=== PATIENT | male | born 2000 | race Caucasian/White ===

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

== ENCOUNTER 2023-12-29 11:07 | Emergency (ER) | payer OTHER, SELFPAY ==
[2023-12-29 11:08] VITALS: BP 146/99; PULSE 90; RESP 16; TEMP 36.7; O2SAT 100; BMI 26.0
--- NOTE | 2023-12-29 11:09 | RAD_ITS ---
INDICATION: distal tip of 4th toe redness, dropped a 12 pack of pop on it EXAMINATION/TECHNIQUE: X-RAY - RIGHT FOOT XR Toes Min 2 Views 4 VIEWS COMPARISON: No relevant prior comparison study available FINDINGS: SOFT TISSUES: No soft tissue swelling or gas. No radiopaque foreign body. BONES/JOINTS: No acute fracture or subluxation.. Normal alignment. Preservation of the joint space.. No sclerotic or destructive changes observed. RAD/Toe(s) Min 2 Views IMPRESSION: No evidence of acute fracture Electronically Signed: Oscar Wu MD at 12:11 EDT ,
--- NOTE | 2023-12-29 12:25 | EX.ED.DYSGE1 ---
HPI <KARINA Denton - Last Filed: 12/29/23 12:39> History of Present Illness Chief Complaint: Lower Extremity Injury Narrative Narrative: Patient is a 23-year-old male with no significant medical history presents to the emergency department with right fourth toe injury. Patient states last evening around 12:30 AM, he was going to bed when he picked up a 12 pack of Pepsi bottles and 1 fell and hit his toe. He states the toes worse with pain and he is here for evaluation thinks he broke his toe. PFSH <KARINA Denton - Last Filed: 12/29/23 12:39> PFSH Home Medications ?Medication ?Instructions ?Recorded ?Last Taken ?Type uujyre-DF-DU-acetaminophen-GG 25 20 ml PO Q6H PRN PRN Congestion 06/15/19 06/15/19 History mg-10 mg-650 mg/20mL(nt) oral liquids Allergy/AdvReac Type Severity Reaction Status Date / Time No Known Allergies Allergy Verified 12/29/23 11:09 Social History Smoking Status: Never smoker ROS <KARINA Denton - Last Filed: 12/29/23 12:39> ROS ED ROS Narrative Constitutional: Negative for fever, chills, weight loss, weakness Eyes: Negative for vision loss, vision change, double vision ENT: Negative for any sore throat, ear pain, congestion Cardiovascular: Negative for any chest pain, tightness, palpitations Respiratory: Negative for any cough, sputum production, hemoptysis, dyspnea, dyspnea on exertion, orthopnea Gastrointestinal: Negative for any abdominal pain, nausea, vomiting, diarrhea, constipation, blood in stool, blood in vomit : Negative for any urinary frequency, dysuria, retention, blood in urine Muscle skeletal: Negative for any neck pain, back pain. Positive for right fourth toe pain Neurological: Negative for any headache, syncope, dizziness Skin: Negative for any rashes, itching, abrasions, lacerations Psychiatric: Negative for any depression, anxiety, stress, suicidal ideation, homicidal ideation Hematologic: Negative for any excessive bruising, easy bleeding EXAM <KARINA Denton - Last Filed: 12/29/23 12:39> Physical Exam Narrative Exam Narrative: Vital signs reviewed. HEET: Head normocephalic atraumatic, TMs clear bilaterally. Posterior pharynx is clear, moist mucous membranes. Nares clear bilaterally. Neck: Supple with no lymphadenopathy or tenderness. No signs of meningismus. Cardiac: Regular rate and rhythm no murmurs gallops or rubs, equal peripheral pulses bilaterally. Respiratory: Lungs clear to auscultation bilaterally. No chest tenderness. Abdomen: Soft, nontender, nondistended. No abdominal bruit or pulsatile masses. No hepatosplenomegaly Extremities: No peripheral edema, no signs of gross trauma or deformity. Active full range of motion of all extremities. Full range of motion, negative for any ecchymosis or edema Neuro: Cranial nerves II through XII intact, no focal neurological deficits. Skin: Clean dry and intact with no rash, purpura, petechiae, vesicles or pustules. Backs/flank: No CVA tenderness, no midline spinal tenderness, no deformity. Psych: Normal mood and affect. No SI, HI or acute psychosis. Const Vital Signs: 12/29/23 11:08 Temperature 98.1 F Temperature Source Temporal Pulse Rate 90 Respiratory Rate 16 Blood Pressure 146/99 H Blood Pressure Mean 114 Pulse Ox 100 Oxygen Delivery Method Room Air <Dr. Chintan Lal DO - Last Filed: 12/29/23 15:34> Physical Exam Const Vital Signs: 12/29/23 11:08 Temperature 98.1 F Temperature Source Temporal Pulse Rate 90 Respiratory Rate 16 Blood Pressure 146/99 H Blood Pressure Mean 114 Pulse Ox 100 Oxygen Delivery Method Room Air MDM <KARINA Denton - Last Filed: 12/29/23 12:39> MDM Radiography Diagnostic Testing: Clinical Impression(s) from Imaging Studies Toe X-Ray 12/29/23 11:09 IMPRESSION: No evidence of acute fracture Electronically Signed: Oscar Wu MD at 12:11 EDT , Treatment and Re-Evaluation :: Differential diagnosis includes however is not limited to: Toe fracture, toe contusion, toe sprain Patient appears generally well, patient appears nontoxic, vital signs are stable. Patient presents to the emergency department with right fourth toe pain. Patient's x-rays of the toes on the right foot shows no evidence of acute fracture. Patient placed in a postop shoe. Structured to ice and elevate. Patient continue to use ibuprofen and Tylenol. All questions answered, patient stable for discharge. <Dr. Chintan Lal, DO - Last Filed: 12/29/23 15:34> [facility] Narrative Medical decision making narrative: Differential diagnosis includes however is not limited to: Toe fracture, toe contusion, toe sprain Patient appears generally well, patient appears nontoxic, vital signs are stable. Patient presents to the emergency department with right fourth toe pain. Patient's x-rays of the toes on the right foot shows no evidence of acute fracture. Patient placed in a postop shoe. Structured to ice and elevate. Patient continue to use ibuprofen and Tylenol. All questions answered, patient stable for discharge. Patient presenting with toe pain after he dropped a 12 pack of Pepsi on his toe. No obvious deformity. Neurovascular intact. Patient offered analgesia but declines. X-ray of the right toes on my interpretation shows no acute fracture or subluxation. Radiology interpretation agrees. Patient does not feel he needs crutches. He is placed in a postop shoe. Tylenol ibuprofen for pain. Return precautions discussed. Radiography Diagnostic Testing: Clinical Impression(s) from Imaging Studies Toe X-Ray 12/29/23 11:09 IMPRESSION: No evidence of acute fracture Electronically Signed: Oscar Wu MD at 12:11 EDT , Discharge Plan Triage Chief Complaint: Lower Extremity Injury ED Midlevel Provider: Xaiv Melara ED Provider: Chintan Lal Dx/Rx/DC Orders Clinical Impression: Contusion of toe Instructions: Bruises (Contusions), Bone Contusion Prescriptions: No Action jvxuhwyep-NP-RM-acetaminoph-GG 360 ML liquid, sequential 20 ml PO Q6H PRN PRN (Reason: Congestion) Primary Care Provider: Care Physician,No Primary Referrals: Care Physician,No Primary [Primary Care Provider] - Activity Restrictions/Additional Instructions: Wear the postop shoe, ice and elevate. Print Language: [place] Disposition Disposition: Home, Self Care Discharge Date/Time: 12/29/23 12:41
== END 2023-12-29 12:41 | disposition home or self-care (01) ==
PROVIDERS: Emergency Provider Student in an Organized Health Care Education/Training Program; Visit Provider Student in an Organized Health Care Education/Training Program
DX: S90.121A Contusion of right lesser toe(s) without damage to nail, initial encounter (principal); X58.XXXA Exposure to other specified factors, initial encounter
CPT/HCPCS: 73660; 99283